=== PATIENT | female | born 1940 | race Caucasian/White ===

== ENCOUNTER → 2018-04-26 | Outpatient (CLI) | payer BC, MEDICARE | LOC: GMATM 17:34 | PROVIDERS: ATTEND Nurse Practitioner Family | DX: R35.1 Nocturia (principal); J06.9 Acute upper respiratory infection, unspecified ==

== ENCOUNTER → 2019-08-09 | Outpatient (CLI) | payer BC, MEDICARE ==
--- NOTE | 2019-08-09 12:56 | RAD ---
Single radiograph pelvis Indication: PAIN IN RIGHT HIP Comparison: None. Impression: Moderate to severe left and [id number] right hip osteoarthritis. Mild pubic symphysis osteoarthritis. No acute fracture identified. Evaluation for fracture is limited given the degree of osteopenia. If high clinical concern for acute fracture, correlation with MRI recommended given its greater sensitivity in the osteopenic patient. If the patient cannot tolerate MRI imaging or more urgent imaging is required, CT could be performed, however it is less sensitive in the osteopenic patient when compared to MRI. Electronically signed by: Benitez Childers MD 08/09/2019 12:54 PM [facility]
== END ==
LOC: RAD 09:12
PROVIDERS: ATTEND Orthopaedic Surgery
DX: M16.0 Bilateral primary osteoarthritis of hip (principal); M85.88 Other specified disorders of bone density and structure, other site

== ENCOUNTER 2019-08-13 05:20 | Day surgery (SDC) | payer BC, MEDICARE ==
[2019-08-13] MEDS ORDERED: LACTATED RINGERS 1,000 ML ONE (07:06)
[2019-08-13] MEDS ORDERED: LIDOCAINE 1% W/ EPINEPHRINE 20 ML VIAL INJ ONE ×2 (07:22→07:58)
[2019-08-13] MEDS ORDERED: BUPIVACAINE 0.25% INJ 30 ML VIAL INJ ONE ×2 (07:22→07:58)
[2019-08-13] MEDS ORDERED: methylPREDNISolone ACETATE 80 MG/ML VIAL ONE (07:23)
[2019-08-13] MEDS ORDERED: methylPREDNISolone ACETATE 80 MG/ML VIAL IM ONE (07:58)
[2019-08-13 09:35] VITALS: BP 196/93; TEMP 97.9; O2SAT 98
[2019-08-13] MEDS ORDERED: LIDOCAINE 1% 10 ML VIAL INJ ONE (10:00)
[2019-08-13] MEDS ORDERED: PROPOFOL 200 MG/20 ML VIAL IV ONE (10:00)
--- NOTE | 2019-08-13 10:36 | RAD ---
EXAM DESCRIPTION: Fluoroscopy Up to 1Hr CLINICAL HISTORY: 79 years Female, HIP INJ TECHNIQUE: Intraoperative fluoroscopy was performed for hip joint injection. FINDINGS: A total of 1 provided images demonstrate changes of hip joint injection. Fluoroscopy time: 5.7 secs Dose: 1.13 mGy IMPRESSION: Intraoperative fluoroscopy was performed for hip joint injection. Electronically signed by: Paulina Wells MD 08/13/2019 10:34 AM [facility]
--- NOTE | 2019-08-17 09:08 | OP ---
DATE OF PROCEDURE: 08/13/19 PREOPERATIVE DIAGNOSIS: 1. Osteoarthritis of the hip. POSTOPERATIVE DIAGNOSIS: 1. Osteoarthritis of the hip. PROCEDURE: 1. Intraarticular injection. SURGEON: Brenden Kelly MD. MAGAZINE JOURNALIST: Nikolay Adamson CST, SA-C. ANESTHESIA: Conscious sedation. COMPLICATIONS: None. FINDINGS: Osteoarthritis of the hip. INDICATION: Ms. Cadet has a history of hip arthritis that has been refractory to conservative measures. Because of the refractory nature of her hip pain, she has requested operative intervention. After discussing the risks, benefits and alternatives to injection, the patient has given informed consent. PROCEDURE: The patient was brought to the Operating Room and placed in supine position. Conscious sedation was administered and the leg was flexed, abducted and externally rotated. The groin was prepped and fluoroscopic imaging was used to confirm needle placement into the hip joint through a medial portal. Once placement had been confirmed, a combination of lidocaine and Depo-Medrol were injected into the joint. After injection, the needle was withdrawn. Pressure was held on the injection site. A sterile band-aid was placed. The patient was then taken back to the Day Surgery Unit. POSTOPERATIVE PLAN: The patient will be weight-bearing as tolerated on postoperative day 1. #[id number] MTDD
== END 2019-08-13 09:15 | disposition home or self-care (01) ==
LOC: AMB 05:20
PROVIDERS: ATTEND Orthopaedic Surgery
DX: M16.11 Unilateral primary osteoarthritis, right hip (principal); D64.9 Anemia, unspecified; I10 Essential (primary) hypertension; E66.9 Obesity, unspecified; Z85.3 Personal history of malignant neoplasm of breast; Z88.5 Allergy status to narcotic agent; Z79.899 Other long term (current) drug therapy
CPT/HCPCS: 01200; 20610; 76000; 80307; 87070; J1030; J3490; J7120